=== PATIENT | male | born 1975 | race Caucasian/White ===

== ENCOUNTER 2019-05-13 14:52 | Emergency (ER) | payer OTHER ==
[~2019-05-13] VITALS: Ht 175.3 cm; Wt 72.2 kg
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
[2019-05-13] MEDS ORDERED: IBUPROFEN 600 MG TAB PO ONE (17:15)
[2019-05-13] MEDS ORDERED: IBUP-1022 PO ×2 (17:38→17:55)
[2019-05-13] MEDS ORDERED: EQ S0.65 NARES ×2 (17:38→17:55)
[2019-05-13] MEDS ORDERED: NORC1TAB7 PO ×2 (17:38→17:55)
[2019-05-13 17:53] VITALS: BP 146/92
== END 2019-05-13 18:03 | disposition home or self-care (01) ==
LOC: M ED 14:52
DX: S02.2XXA Fracture of nasal bones, initial encounter for closed fracture (principal); S05.11XA Contusion of eyeball and orbital tissues, right eye, initial encounter; W22.8XXA Striking against or struck by other objects, initial encounter; Y92.89 Other specified places as the place of occurrence of the external cause; Y93.9 Activity, unspecified; Y99.0 Civilian activity done for income or pay; F17.200 Nicotine dependence, unspecified, uncomplicated